=== PATIENT | female | born 1955 | race Caucasian/White ===

== ENCOUNTER 2019-06-23 09:16 | Observation (INO) | payer OTHER, SELFPAY ==
--- NOTE | 2019-06-10 11:24 | EKG12_ITS ---
Test Reason : PREOP Blood Pressure : / mmHG Vent. Rate : 057 BPM Atrial Rate : 057 BPM P-R Int : 162 ms QRS Dur : 082 ms QT Int : 426 ms P-R-T Axes : 035 043 062 degrees QTc Int : 414 ms Sinus bradycardia Otherwise normal ECG Confirmed by JEREMY NOBLE ([id number]), script editor LEXI MOREJON ([id number]) on 06/12/2019 11:31:00 AM Referred By: Oh Pedroza Confirmed By:JEREMY NOBLE
[2019-06-10 12:02] LABS: Hematocrit 42.8 % (37-47); Hemoglobin 14.1 g/dL (12.0-15.0); Mean Corp Hgb Conc 32.9 g/dL (32-36); Mean Corpuscular Hgb 30.5 pg (27.0-32.0); Mean Corpuscular Volume 92.4 fL (81-99); Mean Platelet Vol. 9.2 fl (6.2-12.0); Platelet Count 258 K/mm3 (150-450); RBC Distribution Width CV 12.4 % (11.6-14.6); RBC Distribution Width SD 42.4 fl (35.1-43.9); Red Blood Count 4.63 M/mm3 (4.2-5.4); White Blood Count 4.8 K/mm3 (4.4-11.0)
[2019-06-10 12:15] LABS: International Normalized Ratio 1.1; Prothrombin Time (Protime)PT. 13.6 SECONDS (11.7-14.9)
[2019-06-10 12:16] LABS: Partial Thromboplast Time 30.7 Seconds (24.1-36.2)
[2019-06-10 12:39] LABS: ALB/GLOB Ratio 1.1 RATIO (0.9-2.4); AST(SGOT) 19 U/L (15-37); Alanine Aminotransfer ALT/SGPT 24 U/L (13-56); Albumin, Serum 4.1 g/dL (3.2-5.0); Alkaline Phosphatase 83 U/L (45-117); Anion Gap 5 (5-15); BUN 24 mg/dL (7-18); BUN/Creat Ratio 28.7 RATIO (10-20); Calcium,Total 8.6 mg/dL (8.5-10.1); Chloride 105 mmol/L (98-107); Creatinine, Serum 0.84 mg/dL (0.55-1.02); EST Glomerular Filtration Rate 73 mL/min (>60); Est Glom Filt Rate - Afr Amer 89 mL/min (>60); Globulin 3.7 g/dL (2.2-4.2); Glucose 87 mg/dL (74-106); Protein, Total 7.8 g/dL (6.4-8.2); Sodium Level 139 mmol/L (136-145)
--- NOTE | 2019-06-21 13:22 | HP.PCM_ITS ---
History and Physical Date of Admission: 06/22/19 Surgical History and Physical Caprice Ribera, a 63 year old female 3 0 0 0 3, presents for Vaginal Hysterectomy and AP Repair on June 15, 2019 at 7:30. -- Prolapse Symptoms -- Caprice presents for prolapse of Uterus. 63 y.o. G 3 P 3 post-menopausal non- smoker and reports that approximately a year ago, she started noticing a periodic low pressure in vagina, then would get better, but continues to return and seems to be worsening in the last couple of months. Denies spotting/bleeding. Prolapse of Uterus which began 1 year. Caprice claims it started gradually and has been present 1 year. It occurs intermittently. It is located in the vagina.; It is located in the lower abdomen. Caprice characterizes the quality vaginal pressure. Severity is moderate and not improving; Associated signs and symptoms are feels a bulge in her vaginal area; some vaginal dryness. MEDICATIONS HISTORY: Current medications prescribed by our practice are: 1. Estrace 0.01% (0.1 mg/gram) vaginal cream, one half gram per vagina twice weekly at Patient is also takin. lisinopril 5 mg tablet, One pill by mouth once a day ALLERGIES: No Known Allergies Infections - Chicken pox Illnesses - HTN Accidents - None Hospitalizations - see surgery Review of Systems: GENERAL - Denies fever, or chills SKIN - Denies skin changes EYES - Denies visual changes EARS - Denies difficulty hearing NOSE - Denies nasal congestion or bleeding MOUTH - Denies sore throat or difficulty swallowing NECK - Denies pain or swelling RESPIRATORY - Denies shortness of breath or wheezing CARDIOVASCULAR - Denies palpitations or chest pain GASTROINTESTINAL - Denies nausea, vomiting, diarrhea, constipation GENITOURINARY - Denies dysuria, frequency of urination, incontinence of urine MUSCULOSKELETAL - Denies joint or muscle pain NEUROLOGICAL - Denies localized numbness or weakness PSYCHIATRIC - Denies depression or anxiety ENDOCRINE - Denies heat or cold intolerance, weight loss or gain HEMATO-IMMUNOLOGIC - Denies excessive bleeding with cuts SOCIAL HISTORY: Alcohol Use - occasionally Smoking - Never Diet - LACTOSE FREE Lifestyle - low stress lifestyle and Exercise - active Seat Belt Use - always Employer - [employer] Illicit Drug Use - None Sexual Activity - Spouse-Sig Other Name - Benny Spouse-Sig Other Occupation - [employer] -- [place] Children Name(s) - 3 children Control - postmenopausal FAMILY HISTORY: non contributory MENSTRUAL HISTORY: LMP Known?- Postmenopausal PAST PREGNANCIES: Total Pregnancies - 3; Full Term Pregnancies - 3; Premature - 0; Abortions, Induced - 0; Abortions, Spontaneous - 0; Ectopics - 0; Multiple Births - 0; Living Children - 3 SURGICAL HISTORY: 1. Tubal, 1992 PHYSICAL EXAM BP- 150/84 Sitting, Right arm, regular cuff Temp- 98.2 Taken Orally Weight- 144.21016 lbs Height- 64.00 inch BMI:24.87 CONSTITUTIONAL - NAD, well nourished, and well developed SKIN - No rash, lesions, or ulcers HEENT - Normocephalic, PERRLA, EOMI NECK - No nodes, no nuchal rigidity and thyroid normal size and texture LYMPH NODES - Palpation of lymph nodes in neck and groins within normal limits LUNGS - CTA x2 without wheezes, crackles or rales CARDIAC - Regular rate and rhythm without rubs, murmurs, or gallops BREAST - No dominant masses, no tenderness, no axillary adenopathy, no nipple discharge, no skin changes ABDOMEN - Without hepatosplenomegaly, distention, masses, rebound, or guarding; normal bowel sounds; no hernias EXTREMITIES - No edema or calf tenderness NEUROLOGICAL - Cranial nerves II-XII grossly intact PSYCHIATRIC - A and O to time, place, person, mood and affect External Genital Vagina - non-tender without lesions Urethra/Urethral Meatus - non-tender Bladder - non-tender Vagina - loss of rugae, large rectocele and large cystocele Cervix - without cervical motion tenderness and has normal size and features without evident lesions and prolapsed to within 2 cm of introitus Uterus - 5-6 cm in size, mobile and nontender Adnexa - clear without masses or tenderness Pap - done -- Reflex to ASCUS, LSIL, LEW ASSESSMENT/PLAN: Cystocele Midline, Rectocele, Uterovaginal Prolapse Discussed options including expectant management, pessary use, or pro ceeding with surgery (VAG HYST, AP Repair). Pt desires proceeding with the surgery. Discussed RBAs and all questions answered. On intravaginal estrogen.
[2019-06-22] VITALS (10 sets, daily range): BP systolic 95–159; BP diastolic 54–84; PULSE 58–73; RESP 15–18; TEMP 36.2–36.7; O2SAT 94–100; BMI 25.5; BMI 26.2
[2019-06-22] MEDS: Lactated Ringers 1,000 ML 100 ML IV (10:35)
--- NOTE | 2019-06-22 11:30 | HYST_PTH ---
PATIENT: VALENCIA DUKES LOC: [facility]3 U#:[id number] AGE/SX: 63/F ROOM: MS305 RE06/23/[address]: Dr. Oh Pedroza MD : [id number] BED: 1 DIS: 06/24/2019 SPEC #: [id number] RECD: 06/22/19 15:14 STATUS: ANTONINO REBirgit #: [id number] DANYEL: 06/22/19 11:[address]: Oh Pedroza DEPT: SURGICAL PATHOLOGY RECD BY: Meri Millan ENTERED: 06/23/19 10:45 SP TYPE: HYSTERECT OTHR DR: Dr. Anisha Cabrera, DO Tissues: Uterus, NOS Procedures: Surgery Specimen Level V HEADER OPERATION: Vaginal hysterectomy, A&P repair PRE-OP DIAGNOSIS: Cystocele midline, rectocele, uterovaginal prolapse TISSUE SUBMITTED: Uterus, vaginal mucosa MICROSCOPIC DIAGNOSIS Uterus and vaginal mucosa, vaginal hysterectomy and A&P repair: Cervix - Chronic cystic cervicitis. Endometrium - Weakly proliferative endometrium with extensive cystic changes. Myometrium - Intramural leiomyomas with focal area of hyalinization (1.6 cm in greatest dimension) Vaginal mucosal tissue - fragments of squamous mucosa with focal mild chronic inflammation and reactive changes. NIRMAL:jaswinder 06/24/19 MICROSCOPIC DESCRIPTION Slides are reviewed. GROSS DESCRIPTION Received in fixative is one container labeled with the patient's name and designated uterus. The specimen consists of a uterus with attached cervix measuring 6.5 x 3.7 x 3.5 cm and weighing 46.6 gm. The ectocervix is unremarkable. The cervical os is oval in contour. The endocervical canal measures 3.6 cm in length and is grossly unremarkable. The triangular endometrial cavity measures 2.5 x 1.6 cm. The reddish-love endometrium measures up to 0.2 cm in thickness. The myometrium measures 1.5 cm in average thickness and contains two firm rubbery white-love nodules ranging in size from 0.7 to 1.6 cm in greatest dimension. All present free in the container are four glistening fragments of love mucosal tissue measuring in aggregate 5 x 3 x 0.5 cm. No mucosal mass lesions are identified. Court Interpreter sections are submitted in cassettes as follows: 1 - anterior cervix, 2 - posterior cervix, 3 & 4 - anterior uterine wall, 5 & 6 - posterior uterine wall, 7 - myometrial nodules, 8 - vaginal mucosa. /AM:jaswinder TC: 1 CPT: 43001
[2019-06-22] MEDS: Lubricating Jelly 60 GM Tube 30 GM TOPICAL (13:13)
--- NOTE | 2019-06-22 14:22 | PCM.OPRPT ---
Report of Operation Date of Procedure: 06/22/19 Pre-Operative Diagnosis: Incomplete Uterovaginal Prolapse, Cystocele, Rectocele Post-Operative Diagnosis: Incomplete Uterovaginal Prolapse, Cystocele, Rectocele Surgery/Procedure Performed:: Vaginal Hysterectomy and Anterior Posterior Repair Description of Surgical Findings:: 6 cm uterus with large rectocele and cystocele. Cervix prolapsed to within 1 to 2 cm of the vaginal introitus with tenaculum pulled down. Cystocele protruded 1 cm outside the vaginal introitus and rectocele protruded to the vaginal introitus. senior etl developer: Myriam Odonnell Type of Anesthesia:: General - LMA Anesthesiologist: Mimi Rossi Specimen's removed: Uterus and vaginal mucosa Drains: Kelly to straight drain Estimated Blood Loss (mL): 100 cc Fluids Replaced: 1300 cc crystalloid Description of Procedure: Surgeon: Oh Pedroza MD, FACOG Indications: This is a 63-year-old patient who is been having problems with prolapse symptoms. Conservative measures have not been helpful. Given this the patient desires that we proceed the above procedure. She has been counseled regarding the risk and indications of this procedure including the possibility of bleeding, infection, and injury to surrounding structures such as bowel bladder. All questions were answered. Procedure: Patient was taken to the operating room where after induction of general anesthesia she was placed in the dorsal lithotomy position and prepped and draped in the usual sterile fashion. A Kelly catheter was placed. Anterior cervix was grasped with a tenaculum and anterior cervix circumscribed with cautery on a setting of 35 W coagulation. Anterior vaginal mucosa was undermined and anterior peritoneum was easily entered. The posterior aspect of the cervix was circumscribed with a knife and posterior peritoneum easily entered. Progressive bites were taken on either side of the uterine cervix and each pedicle ligated with 0 Vicryl suture. Superior pedicles were ligated ?2 with 0 Vicryl suture and sidewall pedicles were examined and oversewn where necessary with [id number] 0 Vicryl suture to achieve hemostasis. Posterior vaginal cuff was oversewn with running locked 0 Vicryl suture. Hemostasis was noted and peritoneum was closed in a pursestring fashion incorporating superior pedicles into the stitch. Vaginal cuff was then closed front to back with interrupted [id number] 0 Vicryl suture. Hemostasis was noted. Attention was turned toward the anterior repair portion of the procedure. Anterior vaginal mucosa was undermined and divided and then imbricated toward the midline with interrupted 0 Vicryl sutures. Vaginal mucosa was trimmed and then closed with interrupted 2-0 chromic suture. Vaginal cuff was then closed front to back with interrupted [id number] 0 Vicryl suture. Hemostasis was noted. Attention was turned toward the posterior repair portion of the procedure. Remnants of the hymenal ring were grasped with Allises and a V-shaped incision was made in the perineum. Rectovaginal mucosa was then undermined divided and then imbricated toward the midline with interrupted 0 Vicryl suture. Vaginal mucosa was trimmed and then closed with running locked 2-0 chromic suture. Remnants of the bulbocavernosus muscles were identified and brought toward the midline with a single [id number] 0 Vicryl suture and perineum was closed in the usual fashion with running and subcuticular, and bsiilp-qd-dmuma 2-0 chromic suture. Hemostasis was noted. Kelly catheter was again opened and clear yellow urine was noted. Vagina was packed with iodoform tape. Patient tolerated the procedure well was taken to recovery room in satisfactory condition; sponge instrument and needle counts were all reportedly correct. Estimated blood loss for the case was 100 cc. Cefotan 2 g IV was given prior to beginning the operative procedure. There were no apparent complications of the surgery. Specimen to pathology was uterus and vaginal mucosa. Grafts/Implants Used: None - Complications None - Admit VTE Documentation VTE Present on Admission: Yes VTE Mechan Device Prophylaxis: SCD's VTE Pharm Prophylaxis ordered?: Yes
--- NOTE | 2019-06-22 14:27 | DCINST_ITS ---
Discharge Diet: No Restrictions Discharge Activity: Return to Normal Activity, May Not Drive - while taking narcotic pain medications., May Shower, May Take a Tub Bath May resume sexual activity in: 6-8 weeks Call your doctor if your incision/area has: Continuous Slow Oozing, Sudden Inc reased Bleeding, Increased Pain/ Swelling, Increased Redness, Foul Smelling Discharge Call your doctor if you observe: Fever of 101 or Higher, Inability to urinate, Inability to have a bowel movement, Using more than one pad per hour Allergies/Adverse Reactions: Allergies No Known Allergies Allergy (Verified 06/22/19 10:16) Medications to take at Discharge Cholecalciferol (VIT D3) [Vitamin D] 1,000 unit PO DAILY 06/08/19 Lisinopril [Prinivil] 10 mg PO DAILY 06/08/19 Docusate Sodium [Colace] 100 mg PO BID PRN PRN #60 cap 06/22/19 Oxycodone [Oxyir] 5 mg PO Q6H PRN PRN 7 Days #14 tab 06/22/19 The following prescriptions were given: Docusate Sodium [Colace] 100 mg PO BID PRN PRN #60 cap PRN Reason: Constipation Transmission Status: Received by [id number] Oxycodone [Oxyir] 5 mg PO Q6H PRN PRN 7 Days #14 tab PRN Reason: Pain Score 6-10/10 Transmission Status: Received by [id number] Orders to be completed after discharge: 12 Lead EKG [CVS] Time Frame: 06/08/19, Facility: [facility], Location: Cardiovascular Services Primary Care Physician: Anisha Cabrera DO [Primary Care Provider] - Test Results: Test results from this visit will be discussed in further detail at your follow- up appointment, if applicable. Please Follow Up With: Oh Pedroza MD When: 2 to 3 weeks
[2019-06-22] MEDS: Ketorolac 30 MG/ML Syringe IV ×2 (14:33→20:06)
[2019-06-22] MEDS: 0.9% Saline Lock 10 ML Syringe IV (17:06)
[2019-06-22] MEDS: Dextrose 5%-Lactated Ringers 1,000 ML 150 ML IV (17:06)
[2019-06-22] MEDS: HYDROmorphone 0.5 MG/0.5 ML SYRINGE IV (17:06)
[2019-06-22] MEDS: Enoxaparin 30 MG/0.3 ML Syringe SC (17:14)
[2019-06-22] MEDS: Lisinopril 10 MG Tablet PO ×2 (18:52)
[2019-06-22] MEDS: oxyCODONE 5 MG Tablet PO (20:05)
[2019-06-23] MEDS: Acetaminophen 500 MG Tablet 1000 MG PO (00:04)
[2019-06-23] MEDS: Ketorolac 30 MG/ML Syringe IV ×4 (02:22→19:50)
[2019-06-23] MEDS: Ondansetron 4 MG/2 ML Vial IV (02:23)
[2019-06-23 02:25] VITALS: BP 126/74; PULSE 64; RESP 16; TEMP 36.9; O2SAT 97
[2019-06-23 05:51] LABS: Hemoglobin 12.2 g/dL (12.0-15.0); Mean Corp Hgb Conc 33.9 g/dL (32-36); Mean Corpuscular Hgb 30.3 pg (27.0-32.0); Mean Corpuscular Volume 89.6 fL (81-99); Mean Platelet Vol. 9.3 fl (6.2-12.0); Platelet Count 231 K/mm3 (150-450); RBC Distribution Width CV 12.2 % (11.6-14.6); RBC Distribution Width SD 40.3 fl (35.1-43.9); Red Blood Count 4.02 M/mm3 (4.2-5.4); White Blood Count 13.7 K/mm3 (4.4-11.0)
[2019-06-23 06:13] LABS: Creatinine, Serum 0.83 mg/dL (0.55-1.02); EST Glomerular Filtration Rate 74 mL/min (>60); Est Glom Filt Rate - Afr Amer 89 mL/min (>60); Estimated Creatinine Clearance 58.13 ml/min
--- NOTE | 2019-06-23 07:50 | PCM.PN.OB ---
Subjective: Patient without complaints. Tolerating diet well although she did have some nausea overnight. Minimal vaginal bleeding. Kelly catheter out still unable to void. Minimal pain. - Physical Exam Vitals/I&O's: Vital Signs Temp Pulse Resp BP Pulse Ox 98.5 F 64 16 126/74 H 97 06/23/19 02:25 06/23/19 02:25 06/23/19 02:25 06/23/19 02:25 06/23/19 02:25 Oxygen Flow Rate (L/min) 1 Oxygen Delivery Method Nasal Cannula Weight: 147 lb 14.4 oz Body Mass Index (BMI) 26.2 Intake and Output for Last 24 Hours 06/21/19 06/22/19 06/23/19 23:59 23:59 23:59 Intake Total 1461.67 / 1861.67 1950 / 1950 Output Total 1100 / 1650 900 / 900 Balance 361.67 / 211.67 1050 / 1050 Comment: Vaginal pack out. Hemoglobin creatinine okay. UOP okay. Laboratory Results 06/23/19 05:32: WBC 13.7 H, RBC 4.02 L, Hgb 12.2, Hct 36.0 L, MCV 89.6, MCH 30.3, MCHC 33.9, RDW Std Deviation 40.3, RDW Coeff of Darline 12.2, Plt Count 231, MPV 9.3 06/23/19 05:32: Creatinine 0.83, Estim Creat Clear Calc 58.13, Est GFR (MDRD) Af Amer 89, Est GFR (MDRD) Non-Af 74 Current Medications Acetaminophen (Tylenol) 1,000 mg PO Q8H PRN PRN PRN Reason: Pain Score 1-3/10 or Fever Last Admin: 06/23/19 00:04 Dose: 1,000 mg Documented by: Docusate Sodium (Colace) 100 mg PO BID PRN PRN PRN Reason: CONSTIPATION Hydromorphone HCl (Dilaudid Inj) 0.5 mg IV Q3H PRN PRN PRN Reason: Pain Score 4-10/10 Last Admin: 06/22/19 17:06 Dose: 0.5 mg Documented by: Ketorolac Tromethamine (Toradol) 30 mg IV Q6H [facility] Stop: 06/27/19 20:31 Last Admin: 06/23/19 02:22 Dose: 30 mg Documented by: Lisinopril (Zestril) 10 mg PO DAILY [facility] Last Admin: 06/22/19 18:52 Dose: 10 mg Documented by: Ondansetron HCl (Zofran) 4 mg IV Q4H PRN PRN PRN Reason: NAUSEA Last Admin: 06/23/19 02:23 Dose: 4 mg Documented by: Oxycodone HCl (Oxyir) 5 mg PO Q4H PRN PRN PRN Reason: Pain Score 4-10/10 Last Admin: 06/22/19 20:05 Dose: 5 mg Documented by: Simethicone (Mylicon) 80 mg PO PCHS [facility] Last Admin: 06/22/19 22:13 Dose: 80 mg Documented by: Sodium Chloride () 10 - 40 ml IV UD PRN PRN Reason: SALINE FLUSH Last Admin: 06/22/19 17:06 Dose: 10 ml Documented by: Medical Necessity - Tobacco Use Smoking Status: Never smoker Tobacco Use: Non-smoker Assessment/Plan Doing well postoperative day #1 status post vaginal hysterectomy and AP repair. Will release to home with routine instructions after able to void on own.
[2019-06-23 08:25] VITALS: BP 121/69; PULSE 63; RESP 18; TEMP 36.9; O2SAT 99
--- NOTE | 2019-06-23 09:16 | NURSING ---
at approx 0830 this am pt called nurse to room for vag bleeding-pt found in chair w/ approx 100 ml of cadet red blood and clots between legs-pt states she coughed and felt it flow-dr theodore had been in recently and removed her packing-pt assisted back to bed, in supine , bereket pad placed and it was quickly saturated-dr theodore wopplc-[id number]-ta denies pain and is not symptomatic-dr theodore repacked vagina at bedside w/ 1 continuous piece of 1 iodoform gauze-pt tolerated well-
[2019-06-23] MEDS: Lisinopril 10 MG Tablet PO (09:27)
[2019-06-23 11:00] VITALS: O2SAT 97
[2019-06-23 14:25] VITALS: BP 131/81; PULSE 60; RESP 18; TEMP 37.1; O2SAT 100
[2019-06-23] MEDS: 0.9% Saline Lock 10 ML Syringe IV (19:51)
[2019-06-23 20:30] VITALS: BP 124/71; PULSE 58; RESP 17; TEMP 36.6; O2SAT 95
[2019-06-24] MEDS: Ketorolac 30 MG/ML Syringe IV (02:50)
[2019-06-24] MEDS: 0.9% Saline Lock 10 ML Syringe IV (02:50)
[2019-06-24 03:00] VITALS: BP 115/61; PULSE 60; RESP 14; TEMP 36.7; O2SAT 97
[2019-06-24 05:33] LABS: Basophil# 0.05 X10^3/uL; Basophil% 0.6 % (0-1); Eosinophils% 2.5 % (0-5); Hematocrit 32.6 % (37-47); Lymphocyte % 26.5 % (19-41); Mean Corp Hgb Conc 33.7 g/dL (32-36); Mean Corpuscular Hgb 30.5 pg (27.0-32.0); Mean Corpuscular Volume 90.3 fL (81-99); Mean Platelet Vol. 9.3 fl (6.2-12.0); Monocyte% 6.3 % (0-10); NRBC Flagged by Analyzer 0 % (0-5); Neutrophil # 5.03 X10^3/uL (2.7-7.7); Neutrophil % 63.7 % (47-70); Platelet Count 201 K/mm3 (150-450); RBC Distribution Width CV 12.6 % (11.6-14.6); Red Blood Count 3.61 M/mm3 (4.2-5.4); White Blood Count 7.9 K/mm3 (4.4-11.0)
[2019-06-24 07:33] VITALS: O2SAT 95
--- NOTE | 2019-06-24 08:14 | PN.OBGYN_ITS ---
Subjective: Patient without complaints. Denies any vaginal bleeding. Tolerating diet well. Patient had some vaginal bleeding yesterday morning after her vaginal pack was removed and it was replaced. Left in place for 24 hours and now removed. - Physical Exam Vitals/I&O's: Vital Signs Temp Pulse Resp BP Pulse Ox 98.1 F 60 14 115/61 95 06/24/19 03:00 06/24/19 03:00 06/24/19 03:00 06/24/19 03:00 06/24/19 07:33 Oxygen Flow Rate (L/min) 1 Oxygen Delivery Method Room Air Weight: 147 lb 14.4 oz Body Mass Index (BMI) 26.2 Intake and Output for Last 24 Hours 06/22/19 06/23/19 06/24/19 23:59 23:59 23:59 Intake Total 1461.67 / 1861.67 2390 / 2390 120 / 120 Output Total 1100 / 1650 1650 / 1650 200 / 200 Balance 361.67 / 211.67 740 / 740 -80 / -80 Comment: Vaginal pack out with minimal blood noted. Laboratory Results 06/24/19 05:18: WBC 7.9, RBC 3.61 L, Hgb 11.0 L, Hct 32.6 L, MCV 90.3, MCH 30.5, MCHC 33.7, RDW Std Deviation 42.0, RDW Coeff of Darline 12.6, Plt Count 201, MPV 9.3, Immature Gran % (Auto) 0.400, Neut % (Auto) 63.7, Lymph % (Auto) 26.5, Atkinson % (Auto) 6.3, Eos % (Auto) 2.5, Baso % (Auto) 0.6, Absolute Neuts (auto) 5.0, Absolute Lymphs (auto) 2.10, Nucleated RBC % 0 Current Medications Acetaminophen (Tylenol) 1,000 mg PO Q8H PRN PRN PRN Reason: Pain Score 1-3/10 or Fever Last Admin: 06/23/19 00:04 Dose: 1,000 mg Documented by: Docusate Sodium (Colace) 100 mg PO BID PRN PRN PRN Reason: CONSTIPATION Hydromorphone HCl (Dilaudid Inj) 0.5 mg IV Q3H PRN PRN PRN Reason: Pain Score 4-10/10 Last Admin: 06/22/19 17:06 Dose: 0.5 mg Documented by: Ketorolac Tromethamine (Toradol) 30 mg IV Q6H [facility] Stop: 06/27/19 20:31 Last Admin: 06/24/19 02:50 Dose: 30 mg Documented by: Lisinopril (Zestril) 10 mg PO DAILY [facility] Last Admin: 06/23/19 09:27 Dose: 10 mg Documented by: Ondansetron HCl (Zofran) 4 mg IV Q4H PRN PRN PRN Reason: NAUSEA Last Admin: 06/23/19 02:23 Dose: 4 mg Documented by: Oxycodone HCl (Oxyir) 5 mg PO Q4H PRN PRN PRN Reason: Pain Score 4-10 Last Admin: 06/22/19 20:05 Dose: 5 mg Documented by: Simethicone (Mylicon) 80 mg PO PCHS [facility] Last Admin: 06/23/19 21:10 Dose: 80 mg Documented by: Sodium Chloride () 10 - 40 ml IV UD PRN PRN Reason: SALINE FLUSH Last Admin: 06/24/19 02:50 Dose: 10 ml Documented by: Medical Necessity - Tobacco Use Smoking Status: Never smoker Tobacco Use: Non-smoker Assessment/Plan Doing well postoperative day #2 status post vaginal hysterectomy anterior posterior repair. Vaginal pack removed and will monitor for vaginal bleeding for an hour. Anticipate release this morning.
[2019-06-24] MEDS: Acetaminophen 500 MG Tablet 1000 MG PO (08:28)
[2019-06-24 08:30] VITALS: BP 128/67; PULSE 60; RESP 18; TEMP 36.7; O2SAT 97
--- NOTE | 2019-06-24 08:33 | NURSING ---
IV leaking around site and painful with saline flush. removed IV and offered to start new one for scheduled toradol. pt refused and asked for oral medication, tylenol instead.
== END 2019-06-24 09:53 | disposition home or self-care (01) ==
LOC: MS3 11:20 → SDC 06-24 08:14 → MS3 06-24 08:14
PROVIDERS: Admitting Provider Obstetrics & Gynecology; Family Provider Internal Medicine; PCP Internal Medicine; Referring Provider Obstetrics & Gynecology; Visit Provider Obstetrics & Gynecology
PROC: (CPT 58260; principal; 2019-06-22 11:10)
DX: N81.2 Incomplete uterovaginal prolapse (principal); I10 Essential (primary) hypertension; Z79.899 Other long term (current) drug therapy; R00.1 Bradycardia, unspecified
CPT/HCPCS: 57260; 58260; 36415; 80053; 82565; 85025; 85027; 85610; 85730; 86850; 86900; 86901; 88307; 93005; 96361; 96365; 96372; 96375; 96376; 99218; 99251; J7120; A4216; G0378; G0379; G0463; J2405